=== PATIENT | female | born 2000 | race African-American/Black ===

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

== ENCOUNTER 2021-09-28 15:18 | Emergency (ER) | payer OTHER ==
[2021-09-28 16:40] VITALS: BP 116/73; PULSE 89; RESP 20
[2021-09-28] MEDS ORDERED: ACETAMINOPHEN TAB 325 MG TAB PO STA (16:41)
--- NOTE | 2021-09-28 16:47 | ED ---
General Adult HPI - General Source: patient, family, RN notes reviewed Mode of arrival: ambulatory Limitations: no limitations <Kyree Parks - Last Filed: 09/29/21 06:03> <Angela Arenas - Last Filed: 09/29/21 13:33> - General Chief complaint: Upper Respiratory Infection Stated complaint: Headache, Abdominal Pain Time Seen by Provider: 09/28/21 16:40 - History of Present Illness Initial comments: 20-year-old female presents emergency dept chief complaint of fever headache abdominal pain. Patient mother tested positive for COVID-19. Patient has had multiple exposure. Also went to home are sick with similar symptoms. No recent Tylenol Motrin. Mild congestion without sore throat and cough. No other comp laints. (Kyree Parks) - Related Data Previous Rx's Medication Instructions Recorded Ferrous Sulfate [Iron] 325 mg PO DAILY #30 tablet 07/03/17 Amoxicillin/Potassium Clav 1 tab PO Q12HR #20 tab 07/15/19 [Augmentin 875-125 Tablet] Ibuprofen [Motrin] 600 mg PO Q6HR PRN #20 tab 07/15/19 Azithromycin [Zithromax Z-pack (6 0 mg PO DIRECTED #1 pack 11/18/19 tabs)] Allergies Allergy/AdvReac Type Severity Reaction Status Date / Time No Known Allergies Allergy Verified 09/28/21 16:39 Review of Systems ROS Other: All systems not noted in ROS Statement are negative. <Kyree Parks - Last Filed: 09/29/21 06:03> ROS Other: All systems not noted in ROS Statement are negative. <Angela Arenas - Last Filed: 09/29/21 13:33> ROS Statement: Those systems with pertinent positive or pertinent negative responses have been documented in the HPI. Past Medical History Past Medical History: Asthma History of Any Multi-Drug Resistant Organisms: None Reported Past Surgical History: No Surgical Hx Reported Past Psychological History: Anxiety, Panic Disorder Smoking Status: Never smoker Past Alcohol Use History: None Reported Past Drug Use History: Marijuana <Kyree Parks - Last Filed: 09/29/21 06:03> General Exam Limitations: no limitations General appearance: alert, in no apparent distress Head exam: Present: atraumatic, normocephalic, normal inspection Eye exam: Present: normal appearance, PERRL, EOMI. Absent: scleral icterus, conjunctival injection, periorbital swelling ENT exam: Present: normal exam, normal oropharynx, mucous membranes moist Neck exam: Present: normal inspection, full ROM. Absent: tenderness, meningismus, lymphadenopathy Respiratory exam: Present: normal lung sounds bilaterally. Absent: respiratory distress, wheezes, rales, rhonchi, stridor Cardiovascular Exam: Present: regular rate, normal rhythm, normal heart sounds. Absent: systolic murmur, diastolic murmur, rubs, gallop, clicks <Kyree Parks - Last Filed: 09/29/21 06:03> Course Vital Signs 09/28/21 09/28/21 16:39 17:53 Temperature 100.0 F H 100.3 F H Pulse Rate 89 Respiratory 20 Rate Blood Pressure 116/73 O2 Sat by Pulse 98 Oximetry Medical Decision Making <Angela Arenas - Last Filed: 09/29/21 13:33> - Medical Decision Making I was available for consultation in the emergency department. The history and physical exam were done by the midlevel provider. I was consulted for this patients care. I reviewed the case with the midlevel provider and based on their presentation of the patient, I agree with the assessment, medical decision making and plan of care as documented. Chart was dictated using [employer] dictation software. Attempts were made to correct any dictation errors however some typographical errors may persist. Patient was seen during a national state of emergency due to the Covid-19 pandemic. (Angela Arenas) - Lab Data Lab Results 09/28/21 Range/Units 16:43 Coronavirus (PCR) Detected A (Not Detectd) Disposition Is patient prescribed a controlled substance at d/c from ED?: No Time of Disposition: 16:46 <Kyree Parks - Last Filed: 09/29/21 06:03> <Angela Arenas - Last Filed: 09/29/21 13:33> Clinical Impression: COVID-19 Disposition: HOME SELF-CARE Condition: Stable Instructions (If sedation given, give patient instructions): Coronavirus Disease 2019 (COVID-19) Additional Instructions: Please return to the Emergency Department if symptoms worsen or any other concerns. Referrals: None,Stated [Primary Care Provider] - 1-2 days
[2021-09-28 17:54] VITALS: TEMP 100.3
== END 2021-09-28 18:04 | disposition home or self-care (01) ==
LOC: EC 15:18
DX: U07.1 COVID-19 (principal); J45.909 Unspecified asthma, uncomplicated
CPT/HCPCS: 87635; 99284